=== PATIENT | male | born 1965 | race Two or more races ===

== ENCOUNTER → 2020-02-09 | Outpatient (REF) | payer BC, OTHER ==
[2020-03-09 10:01] LABS: BASO % 0.6 % (0.0-1.0); EOS # 0.1 10^3/uL (0.0-0.5); EOS % 2.2 % (0.0-3.0); HEMATOCRIT 44.4 % (42.0-52.0); LYMPH # 1.6 10^3/uL (1.5-5.0); LYMPH % 29.8 % (24.0-44.0); MEAN CORPUSCULAR HEMOGLOBIN 30.2 pg (27.0-33.0); MEAN CORPUSCULAR HGB CONC 33.8 g/dl (32.0-36.5); MEAN CORPUSCULAR VOLUME 89.3 fl (80.0-96.0); MONO # 0.5 10^3/uL (0.0-0.8); MONO % 8.5 % (0.0-5.0); NEUTROPHILS # 3.2 10^3/uL (1.5-8.5); NEUTROPHILS % 58.5 % (36.0-66.0); PLATELET COUNT, AUTOMATED 194 10^3/uL (150-450); RED BLOOD COUNT 4.97 10^6/uL (4.30-6.10); WHITE BLOOD COUNT 5.4 10^3/uL (4.0-10.0)
[2020-03-25 17:05] LABS: ALT/SGPT 46 U/L (12-78); BILIRUBIN,TOTAL 0.6 MG/DL (0.2-1.0); BLOOD UREA NITROGEN 19 MG/DL (7-18); CALCIUM LEVEL 9.1 MG/DL (8.5-10.1); CARBON DIOXIDE LEVEL 31 MEQ/L (21-32); CHLORIDE LEVEL 105 MEQ/L (98-107); CREATININE FOR GFR 1.19 MG/DL (0.70-1.30); GLOMERULAR FILTRATION RATE > 60.0 (>56); GLUCOSE, FASTING 97 MG/DL (70-100); POTASSIUM SERUM 4.1 MEQ/L (3.5-5.1); SODIUM LEVEL 136 MEQ/L (136-145); TOTAL PROTEIN 7.2 GM/DL (6.4-8.2)
== END ==
LOC: M PLALAB 07:16 → M LAB REF 07:16
PROVIDERS: ATTEND Physician Assistant
DX: L40.0 Psoriasis vulgaris (principal)

== ENCOUNTER → 2020-06-13 | Outpatient (REF) | payer SELFPAY | LOC: M LABCAHC 08:43 | PROVIDERS: ATTEND Pediatrics | DX: Z20.828 Contact with and (suspected) exposure to other viral communicable diseases (principal) ==

== ENCOUNTER → 2020-07-12 | Outpatient (REF) | payer OTHER ==
[2020-07-12 14:15] LABS: HEMATOCRIT 50.5 % (42.0-52.0); HEMOGLOBIN 16.7 g/dl (13.5-17.5); MEAN CORPUSCULAR HEMOGLOBIN 29.2 pg (27.0-33.0); MEAN CORPUSCULAR HGB CONC 33.1 g/dl (32.0-36.5); MEAN CORPUSCULAR VOLUME 88.4 fl (80.0-96.0); PLATELET COUNT, AUTOMATED 190 10^3/uL (150-450); RED BLOOD COUNT 5.71 10^6/uL (4.30-6.10); WHITE BLOOD COUNT 4.8 10^3/uL (4.0-10.0)
[2020-07-12 14:34] LABS: ALBUMIN 4.4 GM/DL (3.2-5.2); ALT/SGPT 65 U/L (12-78); BILIRUBIN,TOTAL 0.5 MG/DL (0.2-1.0); BLOOD UREA NITROGEN 22 MG/DL (7-18); CALCIUM LEVEL 9.6 MG/DL (8.5-10.1); CARBON DIOXIDE LEVEL 29 MEQ/L (21-32); CHLORIDE LEVEL 105 MEQ/L (98-107); CREATININE FOR GFR 1.35 MG/DL (0.70-1.30); GLUCOSE, FASTING 97 MG/DL (70-100); POTASSIUM SERUM 4.5 MEQ/L (3.5-5.1); SODIUM LEVEL 138 MEQ/L (136-145); TOTAL PROTEIN 7.2 GM/DL (6.4-8.2)
[2020-07-12 14:54] LABS: HEPATITIS B SURFACE ANTIGEN NEGATIVE (NEGATIVE)
[2020-07-12 15:21] LABS: HEPATITIS C VIRUS ABY INDEX 0.1 INDEX (<0.8)
[2020-07-12 15:22] LABS: HEPATITIS B CORE ANTIBODY IGM NEGATIVE (NEGATIVE)
[2020-07-12 15:23] LABS: HIV 1&2 SCREEN CENTAUR NEGATIVE (NEGATIVE)
[2020-07-12 15:24] LABS: HEPATITIS A ANTIBODY IGM NEGATIVE (NEGATIVE)
== END ==
LOC: M SFHCPLAZ 10:01
PROVIDERS: ATTEND Physician Assistant
DX: Z79.899 Other long term (current) drug therapy (principal)

== ENCOUNTER → 2022-03-04 | Outpatient (CLI) | payer OTHER ==
[~2022-03-04] MED LIST: FLOM0.4C39 PO; OMEP1CAP73 PO; VALS320T3 PO
== END ==
LOC: M LAB 08:37
PROVIDERS: ATTEND Physician Assistant
DX: Z79.899 Other long term (current) drug therapy (principal)

== ENCOUNTER → 2023-03-05 | Outpatient (REF) | payer OTHER | LOC: M SFHCDERM 07:40 | PROVIDERS: ATTEND Physician Assistant | DX: Z53.9 Procedure and treatment not carried out, unspecified reason (principal) ==

== ENCOUNTER → 2023-08-26 | Outpatient (CLI) | payer OTHER ==
[2023-08-26 18:29] LABS: BASO % 0.5 % (0.0-1.0); EOS # 0.1 10^3/uL (0.0-0.5); EOS % 1.2 % (0.0-3.0); HEMATOCRIT 45.6 % (42.0-52.0); HEMOGLOBIN 15.3 g/dl (13.5-17.5); LYMPH # 1.5 10^3/uL (1.5-5.0); LYMPH % 20.7 % (24.0-44.0); MEAN CORPUSCULAR HEMOGLOBIN 29.2 pg (27.0-33.0); MEAN CORPUSCULAR HGB CONC 33.6 g/dl (32.0-36.5); MONO # 0.5 10^3/uL (0.0-0.8); MONO % 7.3 % (2.0-8.0); NEUTROPHILS # 5.1 10^3/uL (1.5-8.5); PLATELET COUNT, AUTOMATED 179 10^3/uL (150-450); RED BLOOD COUNT 5.24 10^6/uL (4.30-6.10); WHITE BLOOD COUNT 7.3 10^3/uL (4.0-10.0)
[2023-08-26 18:37] LABS: ERYTHROCYTE SEDIMENTATION RATE 6 mm/hr (0-20)
[2023-08-26 18:42] LABS: ALBUMIN 3.8 G/DL (3.2-5.2); ALKALINE PHOSPHATASE 58 U/L (46-116); ALT/SGPT 30 U/L (7.0-40); AST/SGOT 22 U/L (<34); BILIRUBIN,TOTAL 0.4 MG/DL (0.3-1.2); BLOOD UREA NITROGEN 16 MG/DL (9-23); CALCIUM LEVEL 9.3 MG/DL (8.3-10.6); CARBON DIOXIDE LEVEL 27 MMOL/L (20-31); CHLORIDE LEVEL 108 MMOL/L (98-107); CPK CREATINE PHOSPHOKINASE 366 U/L (46-171); CREATININE FOR GFR 1.24 MG/DL (0.70-1.30); GLOMERULAR FILTRATION RATE > 60.0 (>49); GLUCOSE, FASTING 103 MG/DL (74-106); POTASSIUM SERUM 3.9 MMOL/L (3.5-5.1); SODIUM LEVEL 140 MMOL/L (136-145); TOTAL PROTEIN 6.6 G/DL (5.7-8.2)
[2023-08-26 18:44] LABS: RHEUMATOID FACTOR QUANT 9.7 IU/ML (<14)
== END ==
LOC: M PLALAB 13:46
PROVIDERS: ATTEND Psychiatry & Neurology Neurology
DX: M60.9 Myositis, unspecified (principal)

== ENCOUNTER → 2023-10-15 | Outpatient (REF) | payer OTHER | LOC: M SFHCDERM 18:11 | PROVIDERS: ATTEND Physician Assistant | DX: C44.509 Unspecified malignant neoplasm of skin of other part of trunk (principal) ==

== ENCOUNTER → 2023-11-11 | Outpatient (REF) | payer OTHER | LOC: M SFHCDERM 17:29 | PROVIDERS: ATTEND Physician Assistant | DX: C44.91 Basal cell carcinoma of skin, unspecified (principal) ==

== ENCOUNTER → 2024-03-10 | Outpatient (REF) | payer OTHER | LOC: M LAB REF 17:36 | PROVIDERS: ATTEND Physician Assistant | DX: I78.1 Nevus, non-neoplastic (principal) ==

== ENCOUNTER → 2024-05-14 | Outpatient (REF) | payer OTHER ==
[2024-05-14 13:17] LABS: BASO % 0.4 % (0.0-1.0); EOS # 0.2 10^3/uL (0.0-0.5); EOS % 2.4 % (0.0-3.0); HEMOGLOBIN 16.1 g/dl (13.5-17.5); LYMPH # 1.7 10^3/uL (1.5-5.0); LYMPH % 23.4 % (24.0-44.0); MEAN CORPUSCULAR HEMOGLOBIN 29.8 pg (27.0-33.0); MEAN CORPUSCULAR HGB CONC 33.5 g/dl (32.0-36.5); MEAN CORPUSCULAR VOLUME 88.9 fl (80.0-96.0); MONO # 0.5 10^3/uL (0.0-0.8); MONO % 6.4 % (2.0-8.0); NEUTROPHILS # 4.7 10^3/uL (1.5-8.5); NEUTROPHILS % 67.1 % (36.0-66.0); PLATELET COUNT, AUTOMATED 248 10^3/uL (150-450)
[2024-05-14 13:20] LABS: APPEARANCE, URINE CLEAR (CLEAR); BACTERIA, URINE AUTO NEGATIVE (NEGATIVE); BILIRUBIN, URINE AUTO NEGATIVE (NEGATIVE); BLOOD, URINE BLOOD NEGATIVE (NEGATIVE); COLOR, URINE YELLOW (YELLOW); GLUCOSE, URINE (UA) AUTO NEGATIVE (NEGATIVE); KETONE, URINE AUTO TRACE mg/dL (NEGATIVE); LEUKOCYTE ESTERASE, URINE AUTO NEGATIVE (NEGATIVE); MUCUS, URINE SMALL (NEGATIVE); NITRITE, URINE AUTO NEGATIVE (NEGATIVE); PROTEIN, URINE AUTO NEGATIVE (NEGATIVE); RBC, URINE AUTO 0 /HPF (0-3); SPECIFIC GRAVITY URINE AUTO 1.027 (1.002-1.035); SQUAMOUS EPITHELIAL CELL UR AU 0 /HPF (0-6); UROBILINOGEN, URINE AUTO 0.2 mg/dL (0.0-2.0); WBC, URINE AUTO 0 /HPF (0-3)
[2024-05-14 13:28] LABS: ERYTHROCYTE SEDIMENTATION RATE 6 mm/hr (0-20)
[2024-05-14 13:34] LABS: TOTAL PROTEIN,RANDOM URINE 17.5 MG/DL (0.0-14.0)
[2024-05-14 13:38] LABS: C REACTIVE PROTEIN QUANTITATIV < 0.40 MG/DL (<1.0); CREATININE,RANDOM URINE 221.4 MG/DL
[2024-05-14 13:39] LABS: CPK CREATINE PHOSPHOKINASE 541 U/L (46-171); MAGNESIUM LEVEL 1.9 MG/DL (1.8-2.4); PHOSPHORUS LEVEL 2.8 MG/DL (2.4-5.1)
[2024-05-14 13:41] LABS: COMPLEMENT C3 132.6 MG/DL (90.0-170.0); COMPLEMENT C4 27.4 MG/DL (12-36)
[2024-05-14 13:42] LABS: VITAMIN B12 LEVEL 664 PG/ML (211-911)
== END ==
LOC: M SFHCRHEU 10:51
PROVIDERS: ATTEND Internal Medicine
DX: D72.819 Decreased white blood cell count, unspecified (principal); L40.0 Psoriasis vulgaris; M79.10 Myalgia, unspecified site

== ENCOUNTER 2024-07-29 13:44 | Emergency (ER) | payer OTHER ==
[~2024-07-29] VITALS: Ht 175.3 cm; Wt 109.3 kg
[2024-07-29 17:45] LABS: APPEARANCE, URINE CLEAR (CLEAR); BACTERIA, URINE AUTO NEGATIVE (NEGATIVE); BILIRUBIN, URINE AUTO NEGATIVE (NEGATIVE); BLOOD, URINE BLOOD NEGATIVE (NEGATIVE); COLOR, URINE YELLOW (YELLOW); GLUCOSE, URINE (UA) AUTO NEGATIVE (NEGATIVE); KETONE, URINE AUTO TRACE mg/dL (NEGATIVE); LEUKOCYTE ESTERASE, URINE AUTO NEGATIVE (NEGATIVE); MUCUS, URINE SMALL (NEGATIVE); NITRITE, URINE AUTO NEGATIVE (NEGATIVE); PROTEIN, URINE AUTO NEGATIVE (NEGATIVE); RBC, URINE AUTO 1 /HPF (0-3); SPECIFIC GRAVITY URINE AUTO 1.026 (1.002-1.035); SQUAMOUS EPITHELIAL CELL UR AU 0 /HPF (0-6); UROBILINOGEN, URINE AUTO 0.2 mg/dL (0.0-2.0); WBC, URINE AUTO 1 /HPF (0-3)
[2024-07-29 17:46] LABS: BASO % 0.4 % (0.0-1.0); EOS # 0.1 10^3/uL (0.0-0.5); EOS % 0.8 % (0.0-3.0); HEMATOCRIT 47.2 % (42.0-52.0); HEMOGLOBIN 16.1 g/dl (13.5-17.5); LYMPH # 1.7 10^3/uL (1.5-5.0); LYMPH % 22.8 % (24.0-44.0); MEAN CORPUSCULAR HEMOGLOBIN 29.9 pg (27.0-33.0); MEAN CORPUSCULAR HGB CONC 34.1 g/dl (32.0-36.5); MEAN CORPUSCULAR VOLUME 87.6 fl (80.0-96.0); MONO # 0.5 10^3/uL (0.0-0.8); MONO % 6.3 % (2.0-8.0); NEUTROPHILS # 5.3 10^3/uL (1.5-8.5); NEUTROPHILS % 69.6 % (36.0-66.0); PLATELET COUNT, AUTOMATED 230 10^3/uL (150-450); RED BLOOD COUNT 5.39 10^6/uL (4.30-6.10); WHITE BLOOD COUNT 7.6 10^3/uL (4.0-10.0)
[2024-07-29 18:19] LABS: ALBUMIN 4.3 G/DL (3.2-5.2); ALKALINE PHOSPHATASE 57 U/L (40-129); ALT/SGPT 31 U/L (7.0-40); AST/SGOT 39 U/L (<34); BILIRUBIN,DIRECT 0.1 MG/DL (<0.4); BILIRUBIN,TOTAL 0.5 MG/DL (0.3-1.2); BLOOD UREA NITROGEN 20 MG/DL (9-23); CALCIUM LEVEL 10.5 MG/DL (8.3-10.6); CARBON DIOXIDE LEVEL 28 MMOL/L (20-31); CHLORIDE LEVEL 103 MMOL/L (98-107); CREATININE FOR GFR 1.14 MG/DL (0.70-1.30); GLOMERULAR FILTRATION RATE > 60.0 (>49); GLUCOSE, FASTING 87 MG/DL (74-106); POTASSIUM SERUM 4.3 MMOL/L (3.5-5.1); SODIUM LEVEL 141 MMOL/L (136-145); TOTAL PROTEIN 7.8 G/DL (5.7-8.2)
[2024-07-29 18:20] LABS: THYROID STIMULATING HORMONE 1.892 uIU/ML (0.55-4.78)
[2024-07-29 18:35] VITALS: BP 131/70; TEMP 97.3; O2SAT 97
[2024-07-29] MEDS ORDERED: HYDR-3363 PO (18:37)
== END 2024-07-29 19:00 | disposition home or self-care (01) ==
LOC: M ED 13:44
DX: F41.9 Anxiety disorder, unspecified (principal); I10 Essential (primary) hypertension; E78.00 Pure hypercholesterolemia, unspecified; Z91.09 Other allergy status, other than to drugs and biological substances; Z79.899 Other long term (current) drug therapy

== ENCOUNTER → 2024-08-13 | Outpatient (REF) | payer OTHER ==
[~2024-08-13] MED LIST changes: +HYDR-3363 PO
== END ==
LOC: M SFHCRHEU 09:30
PROVIDERS: ATTEND Internal Medicine
DX: R74.8 Abnormal levels of other serum enzymes (principal)

== ENCOUNTER → 2025-02-24 | Outpatient (CLI) | payer OTHER ==
[~2025-02-24] MED LIST changes: -FLOM0.4C39 PO; +TAMS-18 PO
== END ==
LOC: M PLAIMG 07:36
PROVIDERS: ATTEND Physician Assistant
DX: R94.31 Abnormal electrocardiogram [ECG] [EKG] (principal); I35.1 Nonrheumatic aortic (valve) insufficiency; I36.1 Nonrheumatic tricuspid (valve) insufficiency